=== PATIENT | female | born 1990 | race Caucasian/White ===

== ENCOUNTER 2019-11-04 10:38 | Emergency (ER) | payer BC, SELFPAY ==
--- NOTE | 2019-11-04 10:41 | ED.GENADULT ---
HPI - General Adult General Chief complaint: Ear Stated complaint: Ear pain Time Seen by Provider: 11/04/19 10:40 Source: patient Mode of arrival: ambulatory Limitations: no limitations History of Present Illness HPI narrative: 28-year-old female patient presents to the [facility] with complaints of right ear pain for the past month. Patient states it is right on the inside of her ear. Patient states that it feels full and she feels like there is fluid in there. Patient denies any recent swimming. Patient denies anything for her symptoms. Patient also complaining of about 2 to 3-day history of vaginal itching. Patient states that she did start her. About 4 days ago. Denies any concerns for STDs because she is in a monogamous marriage. Patient denies any vaginal discharge. Patient denies using any kinds of creams or lotions to the area. Patient denies any pain with urination. Related Data Home Medications Medication Instructions Recorded Confirmed levothyroxine [Euthyrox] 50 mcg PO DAILY 11/04/19 11/04/19 Allergies Allergy/AdvReac Type Severity Reaction Status Date / Time No Known Allergies Allergy Unverified 06/04/17 04:24 Review of Systems Review of Systems: Narrative: CONSTITUTIONAL: Denies fever, chills, or sweats. EYES: Denies visual changes, redness, or discharge. ENT: Denies rhinorrhea, congestion, sore throat, positive right otalgia. CARDIOVASCULAR: Denies chest pain, palpitations, or edema. RESPIRATORY: Denies cough or dyspnea. GASTROINTESTINAL: Denies abdominal pain, nausea, vomiting, or diarrhea. GENITOURINARY: Denies dysuria or hematuria. Positive vaginal itching x2 to 3 days SKIN: Denies rash or itching. MUSCULOSKELETAL: Denies back pain, joint pain, or myalgia. NEUROLOGIC: Denies headache, numbness, or weakness. PSYCHIATRIC: Denies anxiety or depression. [facility] Surgical History Surgical History (Updated 04/26/19 @ 09:13 by GLYNN Coleman) Previous section 2012, 2009, 2007 Social History Social History Gender identity (if verbalized by the patient): Female Comments At the time of my signature I agree with nursing past medical history, surgical, social, and family history. There is no relevant family history pertinent to the presenting complaint. Exam Narrative: Exam Narrative: GENERAL: Well-appearing, well-nourished, and in no acute distress. HEAD: Normocephalic, atraumatic. EYES: PERRLA and EOMI. ENT: Nares clear, no rhinorrhea or epistaxis. Mucous membranes moist. The right canal does have some yellow pus noted to the canal. Unable to assess the TM due to the pus in the canal. There is some excoriation to the skin canal mcmahon. NECK: Supple. No lymphadenopathy CHEST: Clear to auscultation. No respiratory distress. HEART: Regular rate and rhythm. No murmur heard. Normal peripheral pulses. ABDOMEN: Soft, nontender, nondistended, normal active bowel sounds. : Deferred due to patient being on her menstrual cycle EXTREMITIES: Normal range of motion. No edema. SKIN: Warm, dry, no rash. NEURO: No focal deficits. Alert and oriented x3. Course Reevaluation(s) Reevaluation #1: Reevaluated patient after her urine dip. Discussed with her that her urine dip does show blood which we did expect since she is on her period but does not show any evidence of UTI. Discussed with her that we will send it off to the lab for further testing if it does come back with evidence of a urinary tract infection we will call her and place her on antibiotics. Discussed with her that we will go ahead and give her some cream for her vaginal itching and discussed with her that this might go away after she is done with her menstrual cycle however if it does not I encouraged her to follow-up with her [facility]. Discussed with her we will also discharge her home with some antibiotic eardrops for the outer ear infection. Patient verbalized understanding o
[2019-11-04 10:56] VITALS: BP 98/70; PULSE 86; RESP 16; TEMP 37.3; O2SAT 98
== END 2019-11-04 11:13 | disposition home or self-care (01) ==
PROVIDERS: Emergency Provider Nurse Practitioner Family
DX: H60.501 Unspecified acute noninfective otitis externa, right ear (principal)
CPT/HCPCS: 81003; 87086; 99213; G0463

== ENCOUNTER 2020-12-26 11:31 | Emergency (ER) | payer BC, SELFPAY ==
--- NOTE | ~2020-12-26 | XR_ITS ---
EXAMINATION: XR foot RT min 3V DATE: 12/26/2020 12:10 INDICATION: Right foot pain TECHNIQUE: Dorsoplantar, lateral, and 2 oblique views of the right foot were obtained. COMPARISON: None. FINDINGS: There is no fracture, dislocation, or subluxation. The bones, soft tissues, and joint space s are normal. IMPRESSION: 1. No acute osseous abnormality. Reviewed, dictated and finalized at location B.
[2020-12-26 11:50] VITALS: BP 93/59; PULSE 72; RESP 16; TEMP 36.6; O2SAT 100
--- NOTE | 2020-12-26 11:50 | ED.LOWEXIN ---
HPI - Extremity Injury (Lower) General Chief Complaint: Extremity Injury, Lower Stated Complaint: Right foot Pain Time Seen by Provider: 12/26/20 12:05 Source: patient and RN notes reviewed Mode of arrival: ambulatory Limitations: no limitations History of Present Illness HPI Narrative: 30-year-old female presents concern for right foot pain. Reports yesterday she rolled the foot causing pain. Reports she has been walking on it however it is painful to walk on. Denies decreased strength, range of motion, sensation. Reports no pain at rest, reports pain with weightbearing, palpation. Denies intervention. MD complaint: foot injury Related Data Home Medications Medication Instructions Recorded Confirmed levothyroxine [Euthyrox] 50 mcg PO DAILY 11/04/19 11/04/19 Allergies Allergy/AdvReac Type Severity Reaction Status Date / Time No Known Allergies Allergy Unverified 06/04/17 04:24 Review of Systems Review of Systems: CONSTITUTIONAL: Denies malaise, chills, sweats, or fever. SKIN: Denies redness, bruising, open skin MUSCULOSKELETAL: Reports right lateral foot pain NEUROLOGIC: Denies numbness, weakness All systems reviewed & are unremarkable except as noted in HPI and below PMFSH Surgical History Surgical History (Updated 04/26/19 @ 09:13 by GLYNN Coleman) Previous section 2012, 2009, 2007 Social History Social History Gender identity (if verbalized by the patient): Female Comments At time of signature, agree with nursing past medical, surgical, social and family history. There is no relevant family history pertinent to the presenting complaint Exam Narrative: GENERAL: Well-appearing, well-nourished, and in no acute distress. HEAD: Normocephalic, atraumatic. EYES: PERRLA, conjunctivae clear NECK: Supple. CHEST: Speaks in full sentences. No respiratory distress. HEART: Regular rate and rhythm. Normal and equal peripheral pulses. EXTREMITIES: Right foot, digits have normal strength and sensation, normal range of motion. No edema or ecchymosis. 5/5 strength with ankle and digit flexion and extension. Normal sensation with sensitivity to light touch and pain. Lateral foot tenderness. No open wounds, no skin tenting, no devitalized tissue or atrophy, no trophic changes, no obvious deformity, alignment normal, nearby joints and structures intact. Distal pulses palpable and equal bilaterally, skin warm, dry, pink. Capillary refill less than 3 seconds. SKIN: Warm, dry, no rash. NEURO: Alert and oriented x3. PSYCH: Normal mood and affect Course Course Emergency Course: Patient is aware of diagnosis, understands and agrees to treatment plan. Anticipatory guidance given. Patient agrees to follow-up as directed and is aware of reasons to seek care at the emergency department. Portions of this record may have been created with voice recognition software Vital Signs Vital signs: Vital Signs Temperature 97.9 F 12/26/20 11:50 Pulse Rate 72 12/26/20 11:50 Respiratory Rate 16 12/26/20 11:50 Blood Pressure 93/59 L 12/26/20 11:50 Pulse Oximetry 100 12/26/20 11:50 Temperature 97.9 F 12/26/20 11:50 Pulse Rate 72 12/26/20 11:50 Respiratory Rate 16 12/26/20 11:50 Blood Pressure 93/59 L 12/26/20 11:50 Pulse Oximetry 100 12/26/20 11:50 Reviewed. MDM - Extremity Injury (Lower) MDM Narrative Medical decision making narrative: Patients injury and pain is consistent with musculoskeletal etiology. No signs of neurological or vascular compromise on exam. Compartments and tissues are soft without signs of compartment syndrome. Pain is felt appropriate for further evaluation on an outpatient basis. Imaging Data My impression: Images reviewed, interpreted by radiologist, agree, see report. Radiologist's impression: EXAMINATION: XR foot RT min 3V DATE: 12/26/2020 12:10 INDICATION: Right foot pain TECHNIQUE: Dorsoplant
== END 2020-12-26 13:04 | disposition home or self-care (01) ==
LOC: EXPCOLL 11:35
PROVIDERS: Emergency Provider Nurse Practitioner
DX: S93.601A Unspecified sprain of right foot, initial encounter (principal); X50.9XXA Other and unspecified overexertion or strenuous movements or postures, initial encounter; E03.9 Hypothyroidism, unspecified
CPT/HCPCS: 73630; 99213; G0463

== ENCOUNTER 2021-05-22 08:48 | Emergency (ER) | payer BC, SELFPAY ==
[2021-05-22 08:58] VITALS: BP 103/65; PULSE 85; RESP 16; TEMP 36.4; O2SAT 100
--- NOTE | 2021-05-22 09:27 | ED.EAR ---
HPI - Ear Problem General Chief complaint: Ear Stated complaint: ear pain Time Seen by Provider: 05/22/21 09:27 Source: patient, RN notes reviewed and old records reviewed Mode of arrival: ambulatory Limitations: no limitations History of Present Illness HPI Narrative: 30-year-old female who presents to [facility] with complaints of right ear pain for 1 week duration with decreased hearing and drainage from her right ear. Patient has redness of right ear with tragal tenderness and crusting noted on right ear opening. Patient states acute discomfort to right ear denies any sore throat any sinus drainage or cough denies any fever chills or body aches. Has not had Covid or flu vaccine.. MD Complaint: ear pain Location: right ear Related Data Home Medications Medication Instructions Recorded Confirmed levothyroxine [Euthyrox] 50 mcg PO DAILY 11/04/19 05/22/21 Allergies Allergy/AdvReac Type Severity Reaction Status Date / Time No Known Allergies Allergy Verified 05/22/21 09:39 Review of Systems Review of Systems: CONSTITUTIONAL: Denies fever, chills, or sweats. EYES: Denies visual changes, redness, or discharge. ENT: Denies rhinorrhea, congestion, sore throat, pain right ear with decreased hearing CARDIOVASCULAR: Denies chest pain, palpitations, or edema. RESPIRATORY: Denies cough or dyspnea. GASTROINTESTINAL: Denies abdominal pain, nausea, vomiting, or diarrhea. GENITOURINARY: Denies dysuria or hematuria. SKIN: Denies rash or itching. MUSCULOSKELETAL: Denies back pain, joint pain, or myalgia. NEUROLOGIC: Denies headache, numbness, or weakness. PSYCHIATRIC: Denies anxiety or depression. All systems reviewed & are unremarkable except as noted in HPI and below PMFSH Past Medical History Medical History (Updated 05/22/21 @ 09:43 by Iona Bowles NP) Hypothyroid Surgical History Surgical History Previous section 2012, 2009, 2007 Social History Social History (Updated 05/22/21 @ 09:40 by Iona Bowles NP) Smoking status: Never smoker Alcohol intake: current Alcohol use details: Social Substance use: never Living arrangements: with family Gender identity (if verbalized by the patient): Female Comments At time of signature, agree with nursing past medical, surgical, social and family history. There is no relevant family history pertinent to the presenting complaint Exam Narrative: GENERAL: Well-appearing, well-nourished, and in no acute distress. HEAD: Normocephalic, atraumatic. EYES: PERRLA and EOMI. ENT: Nares patent with clear rhinorrhea no epistaxis. Mucous membranes moist. Right TM red and bulging with canal red and irritated with yellowish drainage. Left TM normal with good light reflex. Throat with minimal post nasal drainage. Tonsils mildly swollen no exudates or lesions NECK: Supple. Lymphadenopathy CHEST: Clear to auscultation. No respiratory distress. SaO2 100% on room air no cough or shortness of breath HEART: Regular rate and rhythm. No murmur heard. Normal peripheral pulses. ABDOMEN: Soft, nontender, nondistended, normal active bowel sounds. EXTREMITIES: Normal range of motion. No edema. SKIN: Warm, dry, no rash. NEURO: No focal deficits. Alert and oriented x3. Course Course Level of Care: Express Care Visit Vital Signs Vital signs: Vital Signs Temperature 36.4 C 05/22/21 08:58 Pulse Rate 85 05/22/21 08:58 Respiratory Rate 16 05/22/21 08:58 Blood Pressure 103/65 05/22/21 08:58 Pulse Oximetry 100 05/22/21 08:58 Temperature 36.4 C 05/22/21 08:58 Pulse Rate 85 05/22/21 08:58 Respiratory Rate 16 05/22/21 08:58 Blood Pressure 103/65 05/22/21 08:58 Pulse Oximetry 100 05/22/21 08:58 Medical Decision Making Differential Diagnosis Differential Diagnosis: Otitis media, otitis externa, URI, viral syndrome Medical Records Medical records reviewed: Yes I review
== END 2021-05-22 09:50 | disposition home or self-care (01) ==
PROVIDERS: Emergency Provider Registered Nurse
DX: H66.001 Acute suppurative otitis media without spontaneous rupture of ear drum, right ear (principal); H60.391 Other infective otitis externa, right ear; E03.9 Hypothyroidism, unspecified
CPT/HCPCS: 99213; G0463

== ENCOUNTER → 2021-09-02 00:42 | Outpatient (CLI) | payer BC, SELFPAY ==
[2021-09-02 12:34] LABS: SARS-CoV-2 RNA PCR Negative
== END ==
PROVIDERS: Visit Provider Internal Medicine Gastroenterology
DX: Z01.812 Encounter for preprocedural laboratory examination (principal); Z20.822 Contact with and (suspected) exposure to COVID-19
CPT/HCPCS: C9803; U0003; U0005

== ENCOUNTER 2021-09-05 01:14 | Day surgery (SDC) | payer BC, SELFPAY ==
[2021-08-27 11:13] VITALS: BMI 25.7
--- NOTE | 2021-09-04 06:45 | P.HP_ITS ---
History of Present Illness History of Present Illness Consent: Risks, benefits, and alternatives have been discussed and questions answered. Patient agrees to proceed with procedure. Chief complaint: epigastric pain, rectal pain Narrative: Kelsie Huston is a 30 year old female With suffering from rectal pain for quite a while. She does not see blood her stools. She also has pain laterally in the lower abdomen and is more uncomfortable she presses on that ar ea. There has been change in bowel habits. She has a bowel movement only once every 2 or 3 weeks. She sometimes uses a laxative. When her stools move they are hard. There is also pain in the epigastric area. If she palpates the area in will send pain Shooting up and down through her entire body from her head to her feet.. Review of Systems Review of Systems: All systems reviewed & are unremarkable except as noted in HPI and below PMFSH Past Medical History Medical History Chronic rectal pain Hypothyroid Surgical History Surgical History Previous section 2012, 2009, 2007 Social History Social History Smoking packs per day: 15 Smoking cigarettes per day: 300.0 Years smoked: 10 Smoking pack-years: 150.00 Smoking status: Current every day smoker Tobacco type: cigarettes Second hand tobacco smoke exposure: Yes Alcohol intake: unknown Alcohol use details: Social Substance use: never Living arrangements: with family Gender identity (if verbalized by the patient): Female Spiritual care concerns: No Meds Home Medications and Allergies Home Medications Medication Instructions Recorded Confirmed Type levothyroxine [Euthyrox] 50 mcg PO DAILY 11/04/19 08/27/21 History Allergies Allergy/AdvReac Type Severity Reaction Status Date / Time No Known Allergies Allergy Verified 09/05/21 11:28 Exam Const: General: alert Orientation/consciousness: patient oriented x3 Resp: Auscultation: clear to auscultation bilaterally Cardio: Rhythm: regular rhythm GI: GI Palp: Yes Soft to palpation and No Tenderness to palpation present (GI) Neuro: General: patient oriented x3 Assessment and Plan Assessment and plan (1) Epigastric pain: Code(s): R10.13 - Epigastric pain Status: Acute Assessment and Plan: EGD with possible biopsy or dilatation or cautery. (2) Chronic rectal pain: Code(s): K62.89 - Other specified diseases of anus and rectum; G89.29 - Other chronic pain Status: Acute (3) Change in bowel habits: Code(s): R19.4 - Change in bowel habit Status: Acute Assessment and Plan: Colonoscopy with possible biopsy or polypectomy or cautery or injection of substances.
[2021-09-05 11:28] VITALS: BP 106/59; PULSE 69; RESP 16; TEMP 36.9; O2SAT 100
[2021-09-05] MEDS: LACTATED RINGERS 1,000 ML 150 ML IV CONT (11:37)
--- NOTE | 2021-09-05 11:39 | SUR.PREOP ---
Pt speaks Divehi.Map Mounter used via telephone for communication between pt with RN and MD's
--- NOTE | 2021-09-05 11:42 | SUR.PREOP ---
OPI tub washer used to obtain consent ID number [id number]. Patient denies any questions and agrees to procedure.
--- NOTE | 2021-09-05 12:32 | WPDANESEPPF ---
Anes - Initial Pre Proc Eval Procedure: Operation Date: 09/05/21 12:30 Proposed Procedures p Esophagogastroduodenoscopy & Colonoscopy - Ismael Dumont MD Date/Time: 09/05/21 12:32 Surgeon: Ismael Dumont MD Pre Op Diagnosis: epigastric pain, rectal pain Patient Data Age: 30 Gender: F Height: 1.65 m Weight: 66.4 kg Last Vital Signs Temp 98.5 F 09/05/21 11:28 Pulse 69 09/05/21 11:28 Resp 16 09/05/21 11:28 BP 106/59 L 09/05/21 11:28 Pulse Ox 100 09/05/21 11:28 Allergies Allergy/AdvReac Type Severity Reaction Status Date / Time No Known Allergies Allergy Verified 09/05/21 11:28 Home Medications Medication Instructions Recorded Confirmed Type levothyroxine [Euthyrox] 50 mcg PO DAILY 11/04/19 08/27/21 History Patient hx anesthesia problems: none Family hx anesthesia problems: none Results Review: All pre-operative results and documents have been reviewed as part of the pre-operative evaluation. [facility] Past Medical History Medical History Chronic rectal pain Hypothyroid Surgical History Surgical History Previous section 2012, 2009, 2007 Social History Social History Smoking packs per day: 15 Smoking cigarettes per day: 300.0 Years smoked: 10 Smoking pack-years: 150.00 Smoking status: Current every day smoker Tobacco type: cigarettes Second hand tobacco smoke exposure: Yes Alcohol intake: unknown Alcohol use details: Social Substance use: never Living arrangements: with family Gender identity (if verbalized by the patient): Female Spiritual care concerns: No Anes - Eval Final PreProcedure Day of Procedure 09/05/21 12:32 Patient weight: normal Heart: regular rate and rhythm Lungs: clear to auscultation Airway: Mallampati scale class II Neurological: alert and oriented Last oral intake: >/= 8 hours ASA classification: II Emergent: no Anesthetic plan: proceed Anesthesia type and monitoring: general GIVS and standard monitoring Results Review: All pre-operative results and documents have been reviewed as part of the pre-operative evaluation. Informed Consent: The patient's anesthetic plan and its attendant risks and benefits were discussed with the patient/family/POA. Questions were solicited and answers provided to the satisfaction of the patient/family/POA.
--- NOTE | 2021-09-05 12:48 | SUR.OPER ---
EGD ENDED 1241 COLONOSCOPY STARTED 124
[2021-09-05 12:57] VITALS: BP 92/39; PULSE 60; RESP 18; O2SAT 100
[2021-09-05 13:07] VITALS: BP 100/63; PULSE 61; RESP 16; O2SAT 100
[2021-09-05 13:17] VITALS: BP 106/67; PULSE 54; RESP 17; O2SAT 100
== END 2021-09-05 13:20 | disposition home or self-care (01) ==
PROVIDERS: PCP Nurse Practitioner Family; Visit Provider Internal Medicine Gastroenterology
PROC: 0DJ08ZZ Inspection of Upper Intestinal Tract, Via Natural or Artificial Opening Endoscopic (ICD-10-PCS; CPT 43235; principal; 2021-09-05 12:30)
DX: K59.00 Constipation, unspecified (principal); R10.13 Epigastric pain; K21.9 Gastro-esophageal reflux disease without esophagitis; K31.84 Gastroparesis; K62.89 Other specified diseases of anus and rectum; E03.9 Hypothyroidism, unspecified; F17.210 Nicotine dependence, cigarettes, uncomplicated
CPT/HCPCS: 45378; 43239; 87081; J2704; J7120

== ENCOUNTER 2022-06-24 14:44 | Outpatient (CLI) | payer OTHER, SELFPAY ==
--- NOTE | ~2022-06-24 | CT_ITS ---
EXAMINATION: CT abdomen pelvis w con DATE: 06/24/2022 15:21 INDICATION: Low abdominal pain. Bloating and constipation. TECHNIQUE: Computed tomography (CT) of the abdomen and pelvis was performed with 100 mL Omnipaque 350 intravenous contrast. Automated exposure control and iterative reconstruction technique were employe d. The dose-length product was 331.78 mGy-cm. COMPARISON: None. FINDINGS: The visualized portions of the lung bases demonstrate mild atelectasis. No pleural effusion . The heart size is normal. No pericardial effusion. The liver, gallbladder, spleen, pancreas, adrena l glands, and right kidney are normal. There is focal volume loss of left kidney. There are no dilate d loops of bowel. The appendix is normal. There is physiologic fluid in the pelvis. There are no path ologically enlarged lymph nodes. There is mild thoracolumbar spondylosis. IMPRESSION: 1. No etiology for the patient's symptoms. Reviewed, dictated and finalized at location A. PPER APPRENTICE
== END 2022-06-24 14:45 | disposition home or self-care (01) ==
PROVIDERS: PCP Internal Medicine; Visit Provider Nurse Practitioner
DX: R10.9 Unspecified abdominal pain (principal); G89.29 Other chronic pain
CPT/HCPCS: 74177; Q9967

== ENCOUNTER 2022-09-20 14:41 | Emergency (ER) | payer OTHER, SELFPAY ==
[2022-09-20 14:51] VITALS: BP 102/59; PULSE 74; RESP 16; TEMP 36.7; O2SAT 99
--- NOTE | 2022-09-20 15:12 | ED.URI ---
HPI - URI/Sore Throat General Chief Complaint: Upper Respiratory Infection Stated Complaint: SOB Time Seen by Provider: 09/20/22 15:10 Source: patient and RN notes reviewed Mode of arrival: ambulatory Limitations: no limitations History of Present Illness HPI Narrative: 31-year-old female presents with concern for cough. She reports 4 days ago she began having upper respiratory symptoms with cough. She reports her primary care doctor gave her Augmentin and ear drops for an ear infection which she has been taking. Reports her cough continues, she reports history of needing an inhaler in the past when she has had upper respiratory infection. She reports feeling like she can not get a full breath. [place] the [place] and is concerned to be gone without inhaler. She denies fever MD elicited complaint: cough Related Data Home Medications Medication Instructions Recorded Confirmed levothyroxine 50 mcg tablet 50 mcg PO DAILY 11/04/19 08/05/22 (Euthyrox) amoxicillin 875 mg-potassium tablet 09/20/22 clavulanate 125 mg tablet ciprofloxacin 0.3 %-dexamethasone drp 09/20/22 0.1 % ear drops,suspension ergocalciferol (vitamin D2) 1,250 09/20/22 mcg (50,000 unit) capsule nystatin 100,000 unit/mL oral 09/20/22 suspension Allergies Allergy/AdvReac Type Severity Reaction Status Date / Time No Known Allergies Allergy Verified 09/20/22 14:48 Review of Systems Review of Systems: CONSTITUTIONAL: Denies malaise, chills, sweats, or fever. EYES: Denies visual changes, redness, or discharge. ENT: Denies rhinorrhea, congestion, sinus pain, otalgia and sore throat. CARDIOVASCULAR: Denies chest pain, palpitations, or edema. RESPIRATORY: Reports cough, feeling of not getting a full breath. Denies dyspnea. GASTROINTESTINAL: Denies abdominal pain, nausea, vomiting, diarrhea SKIN: Denies rash or itching. MUSCULOSKELETAL: Denies myalgia. NEUROLOGIC: Denies headache. All systems reviewed & are unremarkable except as noted in HPI and below PMFSH Past Medical History Medical History Bloating Chronic abdominal pain Chronic constipation Chronic rectal pain Epigastric burning sensation Hypothyroid Irritable bowel syndrome with constipation Nonerosive esophageal reflux disease Painful sexual intercourse Pelvic pain Retained food in stomach Surgical History Surgical History Previous section 2012, 2009, 2007 Social History Social History Smoking packs per day: 15 Smoking cigarettes per day: 300.0 Years smoked: 10 Smoking pack-years: 150.00 Smoking status: Current every day smoker Tobacco type: cigarettes Second hand tobacco smoke exposure: Yes Additional smoking assessment comments: STATES 15-17 CIGARETTES/DAY/3-4YRS Alcohol intake: never Alcohol use details: Social Substance use: never Substance use type: does not use Living arrangements: with family Gender identity (if verbalized by the patient): Female Spiritual care concerns: No Comments At time of signature, agree with nursing past medical, surgical, social and family history. There is no relevant family history pertinent to the presenting complaint Exam Narrative: GENERAL: Well-appearing, well-nourished, and in no acute distress. HEAD: Normocephalic EYES: PERRLA, conjunctivae clear ENT: Nares clear. Mucous membranes moist. TM pearly hernandez with dull light reflex bilaterally; no tragal tenderness. Oropharynx not erythematous without lesions. Tonsils not enlarged and without exudate, no drooling, no hoarseness, no trismus, uvula midline. NECK: Supple. No lymphadenopathy CHEST: Clear to auscultation, breath sounds equal. No wheezing, rhonchi, rales, or stridor. No respiratory distress, speaks in full sentences. HEART: R
== END 2022-09-20 15:20 | disposition home or self-care (01) ==
PROVIDERS: Emergency Provider Nurse Practitioner; PCP Nurse Practitioner Family
DX: R05.9 Cough, unspecified (principal); F17.210 Nicotine dependence, cigarettes, uncomplicated; E03.9 Hypothyroidism, unspecified
CPT/HCPCS: 99213; G0463

== ENCOUNTER 2023-03-30 08:01 | Outpatient (CLI) | payer OTHER, SELFPAY ==
--- NOTE | ~2023-03-30 | NM_ITS ---
EXAM: NM gastric emptying study DATE: 03/30/2023 13:01 INDICATION: Gastric retention of bloating. TECHNIQUE: A gastric emptying study was performed using the methodology of Reagan VILLALOBOS, et al. J Nucl Med 2007; 48:568-572. The patient was given a meal consisting of 2 scrambled eggs labeled with 0.951 mCi Tc-99m sulfur colloid, 2 slices of toast, two packages of jam, and approximately 120 mL of water . Simultaneous anterior and posterior 1-min images of the abdomen were obtained with the patient supi ne at multiple time points over a total period of 4 hours. The geometric mean of anterior and posteri or views was determined, and the percentage retention was calculated for each time point. COMPARISON: CT abdomen and pelvis 06/24/2022 FINDINGS: Gastric retention of the radiotracer-labeled meal was 55%, 15%, and 1% at the 1-hour, 2-ho ur, and 4-hour time points, respectively. With this technique, apparent rapid gastric emptying is sug gested by <30% gastric retention at 1 hour. Delayed gastric emptying is defined by gastric retention of >90% at 1 hour, >60% retention at 2 hours, or >10% retention at 4 hours. IMPRESSION: 1. Normal gastric emptying. Reviewed, dictated and finalized at location A. METRY PROFESSOR IMPRESSION: 1. Normal gastric emptying.
== END 2023-03-30 08:02 | disposition home or self-care (01) ==
LOC: ANHIMG 08:03
PROVIDERS: PCP Nurse Practitioner Family; Visit Provider Nurse Practitioner
DX: R14.0 Abdominal distension (gaseous) (principal); K31.89 Other diseases of stomach and duodenum
CPT/HCPCS: 78264; A9541

== ENCOUNTER 2023-10-07 10:42 | Emergency (ER) | payer OTHER, SELFPAY ==
--- NOTE | 2023-10-07 10:43 | ED.DENTAL ---
HPI - Dental/Oral General Chief complaint: Ear Stated complaint: Ears/Dental Pain Time Seen by Provider: 10/07/23 10:43 Source: patient Mode of arrival: ambulatory Limitations: no limitations History of Present Illness HPI Narrative: Kelsie is a 32-year-old female patient presenting to the clinic today with complaints of right ear pain and pain over the right jaw. She reports this started about 3 days ago. Denies any fever, chills, body aches, runny nose, cough, or congestion. States that she is having pain in the right ear and pain in the jaw when opening and closing her mouth. Noted yellow drainage coming from the right ear Related Data Home Medications Medication Instructions Recorded Confirmed levothyroxine 50 mcg tablet 50 mcg PO DAILY 11/04/19 10/07/23 (Euthyrox) ergocalciferol (vitamin D2) 1,250 1,250 mcg DIRECTED 09/20/22 10/07/23 mcg (50,000 unit) capsule Allergies Allergy/AdvReac Type Severity Reaction Status Date / Time No Known Allergies Allergy Verified 05/04/23 15:16 Review of Systems Review of Systems: Pertinent positives per HPI. Patient denies any fever, chills, rash, headache, visual changes, dizziness, cough, runny nose, sore throat, shortness of breath, chest pain, palpitations, nausea, vomiting, diarrhea, constipation, abdominal pain, or any urinary issues. [facility] Past Medical History Medical History Bloating Chronic abdominal pain Chronic constipation Chronic rectal pain Epigastric burning sensation Hypothyroid Irritable bowel syndrome with constipation Nonerosive esophageal reflux disease Painful sexual intercourse Pelvic pain Retained food in stomach Surgical History Surgical History Previous section 2012, 2009, 2007 Social History Social History (Updated 10/07/23 @ 11:02 by Corby Hill APRN) Smoking packs per day: 0.75 Smoking cigarettes per day: 15.0 Years smoked: 5 Smoking pack-years: 3.75 Smoking status: Current every day smoker Tobacco type: cigarettes Second hand tobacco smoke exposure: Yes Additional smoking assessment comments: STATES 15-17 CIGARETTES/DAY/5YRS Alcohol intake: never Alcohol use details: Social Substance use: never Substance use type: does not use Living arrangements: with family Gender identity (if verbalized by the patient): Female Spiritual care concerns: No Comments At the time of my signature, I reviewed and agree with the nursing past medical, surgical, social, and family history. There is no relevant family history pertinent to the patient complaint. Exam Narrative: General: Well-developed, well nourished, in no apparent distress Head: Normocephalic, atraumatic Eyes: Pupils equally round and reactive to light bilaterally, EOM intact, sclera and conjunctive clear, no discharge, lids normal Ears: TMs intact and clear, left ear canal clear without drainage, right ear canal swollen and red with yellow drainage, tenderness to palpation over the tragus and pulling of the pinna of the right ear, grossly hearing normal. Nose: Nares patent, no discharge, no inflammation, no sinus tenderness. Mouth: Oropharynx without lesions or masses, good dentition, MMM. Tenderness to palpation over the right TMJ Neck: Supple, trachea midline, no enlargement of anterior or posterior cervical nodes, no thyroid masses or goiter palpable. Cardio: Regular rate and rhythm, s1 and s2 normal, no murmur appreciated. Resp: Clear to auscultation bilaterally anteriorly and posteriorly, no rhonchi, rales, wheezing or rubs Course Course Emergency Course: Portions of this record may have been created with voice recognition software. Level of Care: Express Care Visit Vital Signs Vital signs: Vital signs reviewed MDM - Dental/Oral MDM Narrative Medical decision making narrative: At
[2023-10-07 10:50] VITALS: BP 97/58; PULSE 81; RESP 16; TEMP 36.6; O2SAT 99
== END 2023-10-07 11:03 | disposition home or self-care (01) ==
PROVIDERS: Emergency Provider Nurse Practitioner Family
DX: H60.311 Diffuse otitis externa, right ear (principal); F17.210 Nicotine dependence, cigarettes, uncomplicated; E03.9 Hypothyroidism, unspecified
CPT/HCPCS: 99213; G0463

== ENCOUNTER 2023-10-18 10:43 | Emergency (ER) | payer OTHER, SELFPAY ==
[2023-10-18 10:53] VITALS: BP 104/61; PULSE 89; RESP 16; TEMP 36.8; O2SAT 100
--- NOTE | 2023-10-18 11:55 | ED.EAR ---
HPI - Ear Problem General Chief complaint: Ear Stated complaint: Earache Time Seen by Provider: 10/18/23 11:49 Source: patient and RN notes reviewed Mode of arrival: ambulatory Limitations: no limitations History of Present Illness HPI Narrative: Patient presents today complaining of right ear pain since yesterday decreased hearing in clear drainage. She also reports a buzzing noise to her right ear. She has tried no treatment prior to arrival. A few weeks ago patient was on a course of ear drops for right otitis externa, which she states did help with her symptoms at that time. Related Data Home Medications Medication Instructions Recorded Confirmed levothyroxine 50 mcg tablet 50 mcg PO DAILY 11/04/19 10/18/23 (Euthyrox) ergocalciferol (vitamin D2) 1,250 1,250 mcg DIRECTED 09/20/22 10/18/23 mcg (50,000 unit) capsule albuterol sulfate 90 mcg/actuation 2 puff inhalation DIRECTED 10/18/23 10/18/23 aerosol inhaler sertraline 25 mg tablet 25 mg PO DAILY 10/18/23 10/18/23 Allergies Allergy/AdvReac Type Severity Reaction Status Date / Time No Known Allergies Allergy Verified 10/18/23 10:51 Review of Systems Review of Systems: CONSTITUTIONAL: Denies body aches, fever, chills, or sweats. EYES: Denies visual changes, redness, or discharge. ENT: Denies rhinorrhea, congestion, sore throat. + right ear pain, decreased hearing CARDIOVASCULAR: Denies chest pain, palpitations, or edema. RESPIRATORY: Denies cough or dyspnea. GASTROINTESTINAL: Denies abdominal pain, nausea, vomiting, or diarrhea. GENITOURINARY: Denies dysuria or hematuria. SKIN: Denies rash, itching, or wounds. MUSCULOSKELETAL: Denies back pain, joint pain, or myalgia. NEUROLOGIC: Denies headache, numbness, tingling, or weakness. PSYCH: Denies depression or anxiety. [facility] Past Medical History Medical History Bloating Chronic abdominal pain Chronic constipation Chronic rectal pain Epigastric burning sensation Hypothyroid Irritable bowel syndrome with constipation Nonerosive esophageal reflux disease Painful sexual intercourse Pelvic pain Retained food in stomach Surgical History Surgical History Previous section 2012, 2009, 2007 Social History Social History Smoking packs per day: 0.75 Smoking cigarettes per day: 15.0 Years smoked: 5 Smoking pack-years: 3.75 Smoking status: Current every day smoker Tobacco type: cigarettes Second hand tobacco smoke exposure: Yes Additional smoking assessment comments: STATES 15-17 CIGARETTES/DAY/5YRS Alcohol intake: never Alcohol use details: Social Substance use: never Substance use type: does not use Living arrangements: with family Gender identity (if verbalized by the patient): Female Spiritual care concerns: No Comments At time of signature, I have reviewed and agree with nursing past medical, surgical, social and family history unless otherwise noted. Please see nursing chart for further information. There is no relevant family history pertinent to the presenting complaint Exam Narrative: GENERAL: Well-appearing, well-nourished, and in no acute distress. HEAD: Normocephalic, atraumatic. EYES: EOMI. No redness or drainage. Conjunctivae normal. ENT: Mucous membranes pink and moist. Nares clear. No rhinorrhea. Left TM normal. Right TM slightly erythematous and very dull. Canal appears normal. NECK: Normal AROM. CHEST: No respiratory distress. EXTREMITIES: Normal range of motion. No edema. SKIN: Warm, dry, no rash. Capillary refill normal. Normal skin turgor. NEURO: No focal deficits. Alert and oriented x3. Gait steady. PSYCH: Normal affect. No signs of depression or anxiety. Course Course Level of Care: Express Care Visit Vital Signs Vital signs:
== END 2023-10-18 12:00 | disposition home or self-care (01) ==
PROVIDERS: Emergency Provider Nurse Practitioner
DX: H66.91 Otitis media, unspecified, right ear (principal); F17.210 Nicotine dependence, cigarettes, uncomplicated; E03.9 Hypothyroidism, unspecified
CPT/HCPCS: 99213; G0463

== ENCOUNTER 2024-08-03 16:52 | Emergency (ER) | payer OTHER, SELFPAY ==
[2024-08-03 17:02] VITALS: BP 95/56; PULSE 59; RESP 20; TEMP 36.9; O2SAT 99
--- NOTE | 2024-08-03 17:05 | ED_ITS ---
HPI - URI/Sore Throat General Chief Complaint: Ear Stated Complaint: Ears Irritation/Tongue Irritation Time Seen by Provider: 08/03/24 17:45 Source: patient, RN notes reviewed and old records reviewed Mode of arrival: ambulatory Limitations: no limitations History of Present Illness HPI Narrative: Patient presents with complaints of bilateral ear irritation. She states that symptoms have been present for 2-3 days. She has not been taking anything for her symptoms. Patient has been doing restorationist fasting for the past couple of weeks. She now notices that her time becomes black during times of fasting and looks normal once she is able to eat and drink again. States tongue does not hurt. She voices no other complaints. Related Data Home Medications ?Medication ?Instructions ?Recorded ?Confirmed ?Last Taken ?Type ergocalciferol (vitamin D2) 1,250 1,250 mcg DIRECTED 09/20/22 10/18/23 Unknown History mcg (50,000 unit) capsule levothyroxine 25 mcg tablet mcg 08/03/24 Unknown History Allergies Allergy/AdvReac Type Severity Reaction Status Date / Time No Known Allergies Allergy Verified 10/18/23 10:51 Review of Systems Review of Systems: All systems reviewed & are unremarkable except as noted in HPI and below Constitutional: Constitutional: Reports no additional constitutional complaints ENT: Reports system reviewed and no additional complaints, except as documented, Reports otalgia and Reports other (black tongue) Cardiovascular: Cardiovascular: Reports no additional cardiovascular complaints Respiratory: Respiratory: Reports no additional respiratory complaints Gastrointestinal: Gastrointestinal: Reports no additional gastrointestinal complaints [facility] Past Medical History Medical History Bloating Chronic abdominal pain Chronic constipation Chronic rectal pain Epigastric burning sensation Hypothyroid Irritable bowel syndrome with constipation Nonerosive esophageal reflux disease Painful sexual intercourse Pelvic pain Retained food in stomach Surgical History Surgical History Previous section 2012, 2009, 2007 Social History Social History Smoking packs per day: 0.75 Smoking cigarettes per day: 15.0 Years smoked: 5 Smoking pack-years: 3.75 Smoking status: Current every day smoker Tobacco type: cigarettes Second hand tobacco smoke exposure: Yes Additional smoking assessment comments: STATES 15-17 CIGARETTES/DAY/5YRS Alcohol intake: never Alcohol use details: Social Substance use: never Substance use type: does not use Living arrangements: with family Gender identity (if verbalized by the patient): Female Spiritual care concerns: No Comments At the time of my signature, I reviewed and agree with the nursing past medical, surgical, social, and family history. There is no relevant family history pertinent to the patient complaint. Exam Const: General: cooperative, no acute distress, alert and awake Orientation/consciousness: oriented to person, oriented to place and oriented to time HENMT: Head: normal to inspection Ears: TM's normal bilaterally and Abnormal EAC present erythema bilateral, edema bilateral and EAC tenderness bilateral Mouth: Yes tongue abnormal discolored Resp: Effort & Inspection: normal respiratory effort and able to speak in complete sentences Auscultation: clear to auscultation bilaterally, no crackles, no rales, no rhonchi and no wheezes Cardio: Palpation: normal PMI Rate: regular rate Rhythm: regular rhythm Heart sounds: S1 normal heart sound present and S2 normal heart sound present Neuro: General: oriented to person, oriented to place and oriented to time Cranial nerves: Yes CN's II-XII intact bilaterally Psych: Appearance: grossly normal Thought process: Normal thought process present Insight: Good insight present (Psych) Judgement: Good judgement present (Psych) Course Course Level of Care: Express Care Visit Vital Signs Vital signs: Reviewed MDM - URI/Sore Throat MDM Narrative Medical decision making narrative: Exam consistent with otitis externa. Treat with otic drops. Discoloration of tongue noted. This is likely due to fasting. This was discussed with patient who verbalizes understanding of same. Emergency department precautions discussed. Discharge instructions reviewed with patient, as well as provided in writing per nursing staff. The instructions also include specific and strict return/GO TO THE ER as well as f/u information. All questions have been answered, and the patient deny any further questions with discharge and discharge plan. Some parts of this dictation were generated by voice recognition software and may contain typographical and/or grammatical inaccuracies. Differential Diagnosis Differential diagnosis: Likely upper respiratory infection and otitis media Medical Records Attestation: I reviewed the patient's medical records. Discharge Plan Discharge Clinical Impression: Black tongue Otitis externa Qualifiers: Otitis externa type: unspecified type Chronicity: acute Laterality: bilateral Qualified Code(s): H60.503 - Unspecified acute noninfective otitis externa, bilateral Patient Disposition: Home, Self-Care Condition: Stable Instructions: Antibiotic Form, Swimmer's Ear (ED) Additional Instructions: Take medication as prescribed. Follow with primary care provider. Emergency department for new or worse symptoms Patient Language: Latvian Prescriptions: New ciprofloxacin-dexamethasone 0.3-0.1 % drops,suspension 4 drp EACH EAR Q12H 7 Days Qty: 7.5 0RF No Action levothyroxine 25 mcg tablet ergocalciferol (vitamin D2) 1,250 mcg (50,000 unit) capsule 1,250 mcg DIRECTED Follow-up/Referrals: PHYSICIAN,PROFESSOR OF RELIGIOUS STUDIES [Primary Care Provider] - Time of Disposition: 18:00
== END 2024-08-03 18:08 | disposition home or self-care (01) ==
PROVIDERS: Emergency Provider Nurse Practitioner Family
DX: K14.8 Other diseases of tongue (principal); H60.503 Unspecified acute noninfective otitis externa, bilateral; F17.210 Nicotine dependence, cigarettes, uncomplicated; E03.9 Hypothyroidism, unspecified; K21.9 Gastro-esophageal reflux disease without esophagitis
CPT/HCPCS: 99213; G0463

== ENCOUNTER 2025-03-21 13:05 | Outpatient (RCR) | payer OTHER, SELFPAY ==
--- NOTE | 2025-03-21 13:44 | OPREHPOC ---
Outpatient Therapy Plan of Care This is a Multidisciplinary Plan of Care that may contain components documented by all disciplines (PT, OT, and ST.) PT Problem 1 PT Problem #1 Knowledge Deficit PT Goal 1 Goal / Goal Update 1. Patient will perform independent HEP Target Visit 2 PT Problem 2 PT Problem #2 Pain PT Goal 1 Goal / Goal Update 1. Patient will report no pain with pelvic exam to PIP throughout 2. Patient will report pain with intercourse or pap smear /10 highest to allow for full medical management (ultrasounds etc) Target Visit 4 PT Problem 3 PT Problem #3 Impaired Strength PT Goal 1 Goal / Goal Update 1. Patient able to contract and hold abdominal muscles with lift Target Visit 4
--- NOTE | 2025-03-21 13:44 | PTOPEVAL1 ---
Assessment and note entered by Jammie Grijalva DPT Evaluation Information Assessment Status Evaluation ICD-10 Condition Codes (PT) Weakness R53.1,Pelvic and perineal pain R10.2 Subjective Information Pt reports pelvic pain with intercourse and pap smear/pelvic exam that has been present for years. Pain up to 8/10 highest and 0/10 lowest. Voids 6- 7 times a day and sometimes once at night. No pain with urination. No urge issues and no incontinence. BM most days of the week. Pt has been 5 times, 5 deliveries (one with twin ) 1 vaginal delivery and 4 C-sections. Most recent in 2019. No other SNOW REMOVAL/PLOWING history. Patient goal: see if therapy helps with the pain Returns to MD for ultrasound in 8 weeks. Reported Pain Level Pain Score 0: Self Report Assessment PT Clinical Summary The patient is presenting to skilled therapy with a history of pelvic pain for years. She presents with significantly increased pelvic floor muscle tone and pain with palpation, as well as decreased abdominal strength. These impairments are contributing to her pain and difficulty tolerating pap smears etc. She will benefit from therapy to address her impairments and to reduce pain and improve function. PFIQ 23.67% disability Plan of Care Interventions Electrical Stimulation,Hot Pack/Cold Pack,Manual Therapy,Neuro Re-education,Patient/Caregiver Education,Therapeutic Activities,Therapeutic Exercise PT Services Indicated Yes Treatment Frequency and 1 time a week x 4 visits Duration These treatments will address the objective and functional deficits as defined above. The patient will be advanced safely and appropriately in order for the patient to progress towards his/her prior level of function. Additional exercises will be introduced and as well as a comprehensive home exercise program upon discharge, if needed, ?to ensure carryover of functional gains achieved in the clinic. This treatment plan has been reviewed and agreement upon by the patient.
--- NOTE | 2025-04-04 10:24 | PCPTNOTE ---
Patient did not show up for appointment 04/04/25.
--- NOTE | 2025-04-20 10:38 | PCPTNOTE ---
Patient cancelled appointment 04/20/25. Unknown specifics.
--- NOTE | 2025-05-01 13:15 | PCPTNOTE ---
Late entry- patient cancelled appointment 04/27/25 via online system. Unknown specifics.
--- NOTE | 2025-05-01 13:16 | PTOPDC ---
Assessment and note entered by Jammie Grijalva DPT Evaluation Information Assessment Status Discharge - Pt Not Present ICD-10 Condition Codes (PT) Weakness R53.1,Pelvic and perineal pain R10.2 Subjective Information - Assessment PT Clinical Summary Patient has not attended therapy since evaluation 03/21/25 and has cancelled or no shows 3 scheduled visits. Per attendance policy her case will be discharged this date. Plan of Care PT Services Indicated No
== END 2025-05-02 09:18 | disposition home or self-care (01) ==
LOC: ANHPT 13:05
PROVIDERS: Visit Provider Nurse Practitioner
DX: N94.10 Unspecified dyspareunia (principal)
CPT/HCPCS: 97110; 97161